=== PATIENT | female | born 1980 | race Caucasian/White ===

== ENCOUNTER 2017-12-09 21:21 | Inpatient (IN) | payer OTHER ==
[~2017-12-09] VITALS: Ht 157.5 cm; Wt 91.6 kg
[2017-12-09] MEDS ORDERED: PRENATABS RX T1 EACH PO (21:42)
== END 2017-12-12 15:20 | disposition home or self-care (01) | DRG 781 ==
LOC: OBS/DEL 21:21 → LDR 21:54 → OB/GYN 12-11 11:21
PROC: 4A1HXCZ Monitoring of Products of Conception, Cardiac Rate, External Approach (ICD-10-PCS; principal; 2017-12-09)
DX: O40.3XX0 Polyhydramnios, third trimester, not applicable or unspecified (principal); O12.13 Gestational proteinuria, third trimester

== ENCOUNTER 2018-01-17 18:46 | Inpatient (IN) | payer OTHER ==
[~2018-01-17] VITALS: Ht 157.5 cm; Wt 91.6 kg
[~2018-01-17 18:46] MED LIST: PRENATABS RX T1 EACH PO
[2018-01-18] MEDS ORDERED: IRON18 MG PO (00:07)
== END 2018-01-19 14:11 | disposition home or self-care (01) | DRG 833 ==
LOC: LDR 18:46
PROC: 4A1HXCZ Monitoring of Products of Conception, Cardiac Rate, External Approach (ICD-10-PCS; principal; 2018-01-17)
DX: O13.3 Gestational [pregnancy-induced] hypertension without significant proteinuria, third trimester (principal); Z34.03 Encounter for supervision of normal first pregnancy, third trimester

== ENCOUNTER 2018-01-28 00:39 | Inpatient (IN) | payer OTHER ==
[~2018-01-28] VITALS: Ht 157.5 cm; Wt 202.0 kg
[~2018-01-28 00:39] MED LIST changes: +IRON18 MG PO
== END 2018-01-30 16:44 | DRG 806 ==
LOC: LDR 00:39 → OB/GYN 15:21 → LDR 02-11 15:51
PROC: 10E0XZZ Delivery of Products of Conception, External Approach (ICD-10-PCS; principal; 2018-01-28)
PROC: 4A1HXCZ Monitoring of Products of Conception, Cardiac Rate, External Approach (ICD-10-PCS; 2018-01-28)
PROC: 0UQGXZZ Repair Vagina, External Approach (ICD-10-PCS; 2018-01-28)
DX: O71.4 Obstetric high vaginal laceration alone (principal); O12.13 Gestational proteinuria, third trimester; Z37.0 Single live birth; O40.3XX0 Polyhydramnios, third trimester, not applicable or unspecified; O34.13 Maternal care for benign tumor of corpus uteri, third trimester; D25.9 Leiomyoma of uterus, unspecified; Z3A.38 38 weeks gestation of pregnancy

== ENCOUNTER 2022-05-10 12:11 | Emergency (ER) | payer OTHER ==
[~2022-05-10] VITALS: Ht 157.5 cm; Wt 85.7 kg
[2022-05-10] MEDS ORDERED: NORFLEX100MG PO (14:41)
[2022-05-10] MEDS ORDERED: KETO10TA2 PO (14:41)
== END 2022-05-10 15:19 | disposition home or self-care (01) ==
LOC: ER 12:11
DX: M54.50 Low back pain, unspecified (principal)

== ENCOUNTER 2022-09-02 10:05 | Emergency (ER) | payer OTHER ==
[~2022-09-02] VITALS: Ht 157.5 cm; Wt 84.4 kg
[~2022-09-02 10:05] MED LIST changes: +KETO10TA2 PO; +NORFLEX100MG PO
== END 2022-09-02 15:20 | disposition home or self-care (01) ==
LOC: ER 10:05
DX: H53.2 Diplopia (principal)

== ENCOUNTER 2023-03-30 08:12 | Emergency (ER) | payer OTHER ==
[~2023-03-30] VITALS: Ht 157.5 cm; Wt 83.9 kg
== END 2023-03-30 10:43 | disposition home or self-care (01) ==
LOC: ER 08:12
DX: J45.909 Unspecified asthma, uncomplicated (principal)